=== PATIENT | male | born 1980 | race Caucasian/White ===

== ENCOUNTER 2017-12-12 10:07 | Inpatient (IN) | payer OTHER ==
[~2017-12-12] VITALS: Ht 175.3 cm; Wt 67.0 kg
[2017-12-12 11:30] VITALS: BP 139/84; PULSE 80; TEMP 36.8; O2SAT 96
[2017-12-12] MEDS ORDERED: ONDANSETRON INJ 2 MG/ML 2 ML VIAL IV PRN (12:30)
[2017-12-12] MEDS ORDERED: MAGNESIUM HYDROXIDE SUSP 30 ML UDC PO PRN (12:30)
[2017-12-12] MEDS ORDERED: ACETAMINOPHEN 325 MG TAB PO PRN (12:30)
[2017-12-12] MEDS ORDERED: ALUMINUM/MAGNESIUM/SIMETH (MAALOX MAX) 30 ML UDC PO PRN (12:30)
[2017-12-12 13:22] VITALS: BP 139/84; PULSE 80; TEMP 36.8; Ht 175.3 cm; Wt 67.0 kg
[2017-12-12] MEDS ORDERED: INFLUENZA VIRUS QUAD VACCINE 0.5 ML SYR IM. ONE (14:45)
[2017-12-12] MEDS ORDERED: PNEUMOCOCCAL POLYSACCHARIDES 25 MCG/0.5 ML VIAL/SYR IM. ONE (14:45)
[2017-12-12] MEDS ORDERED: INFLUENZA ADMINISTRATION CHARGE ONE (14:45)
[2017-12-12] MEDS ORDERED: PNEUMOCOCCAL ADMINISTRATION CHARGE ONE (14:45)
[2017-12-12] MEDS ORDERED: PATIENT'S ALLERGY INFO NEEDS ENTERED SCH (15:00)
[2017-12-12 15:31] VITALS: BP 119/66; PULSE 82; TEMP 37.9; O2SAT 98
[2017-12-12] MEDS ORDERED: KETOROLAC TROMETHAMINE 30 MG/ML VIAL ONE (15:35)
[2017-12-12] MEDS ORDERED: KETOROLAC TROMETHAMINE 30 MG/ML VIAL IV ONE (16:15)
[2017-12-12] MEDS: MoRPHine SULFATE 4 MG/ML 1 ML CARP\\VIAL IV PRN ×2 (16:42→20:20)
[2017-12-12] MEDS: NAFCILLIN SOD IV 2 GM in DEXTROSE 5% ADD-VANTAGE 100ML 100 ML IV SCH ×3 (16:42→23:59)
--- NOTE | 2017-12-12 18:58 | History and Physical ---
History & Physical Date of Service Dec 12, 2017. History & Physical admit #[id number]
--- NOTE | 2017-12-12 19:15 | Medical Student: [facility] ---
Med Student History & Physical Date & Time of Service: Dec 12, 2017 at 18:14 Chief Complaint: Foot Infection Primary Care Physician: No Doctor, Assigned History of Present Illness Source: patient, hospital records (patient was transfered to [facility] from [facility]) Mr. Rushing is a 36-year-old male who presents with cellulitis of the left foot via direct admit from [facility]. He was taken to the ED there by a friend late Monday night (12/11) after the skin over the central abscessed area on the left dorsum broke, and the area drained a purulent material. He states that at that time, the pain was so severe that he could not put weight on the foot, which is what prompted him to seek emergent care. This all began about 10 days ago, when the patient noticed a "boil" about the size of a pencil eraser on the dorsum of the left foot. He thought it was an infected hair follicle and attempted to break it open. Several days later, the area became erythematous, warm to touch, and increasingly painful, so he went to an outpatient clinic in [place], where he was given a prescription for an oral antibiotic. He did not get the prescription filled. The pain continued to worsen, and a raised, fluctuant area developed in the center of the left dorsum, surrounded by erythema that reached from the base of his toes to his ankle. Records from [place] were sent with him to [facility] and were reviewed. Vitals taken on arrival to the [place] ED were stable with no increase in temperature. He was given one dose of ceftriaxone and one dose of vancomycin (250 mg) in the ED at [place] before being sent to [facility]. CT scan of the left foot showed no fracture or dislocation, no abscess, and likely inflammation of the soft tissue consistent with cellulitis. A UA done there revealed no infection, and a CBC showed no abnormalities; WBC was 7.9. ESR was slightly elevated and will need followed. On admission to [facility], patient denies fever, chills, any trauma or puncture wound to the left foot, or pain radiating into his toes or proximal to his ankle. He rates his pain as 10/10 and says that he can barely put any weight on the left foot. The pain is localized and has not spread to his toes or more proximal than his ankle. 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 Past Medical/Surgical History 1. Cellulitis of left foot, dorsum, with possible abscess 2. Chronic hepatitis C, untreated Social History Smoking Status: Current Every Day Smoker (1/2 pack per day; about 12 pack-years ) Drug Use: other (recently went through suboxone controlled-detox program) Marital Status: Housing status: lives with significant other Occupational Status: employed Allergies Coded Allergies: No Known Allergies (Unverified , 12/12/17) Review of Systems Constitutional: No fever, No chills, No sweats Eyes: No worsening of vision ENT: No hearing loss, No nasal symptoms Respiratory: No cough, No wheezing, No shortness of breath Cardiovascular: No chest pain, No orthopnea Abdomen: No pain, No nausea, No vomiting Musculoskeletal: + swelling, + problem reported (pain and erythema over dorsum of left foot; pain with weightbearing on left foot) Genitourinary - Male: No hematuria, No dysuria Neurologic: No weakness, No numbness/tingling Endocrine: No fatigue Hematologic / Lymphatic: No abnormal bleeding/bruising Integumentary: + new/changing skin lesions (raised, painful lesion on left foot ), + color change (erythema of left foot from base of toes to ankle) Allergic / Immunologic: No environmental allergies Physical Exam Vital Signs (24 Hours) Date Time Temp Pulse Resp B/P (MAP) Pulse Ox O2 Delivery O2 Flow Rate FiO2 12/12/17 15:31 37.9 82 18 119/66 (83) 98 Room Air 12/12/17 15:30 Room Air 12/12/17 13:22 36.8 80 18 139/84 Room Air 12/12/17 11:30 36.8 80 18 139/84 (102) 96 Room Air General Appearance: WD/WN, + mild distress Head: normocephalic, atraumatic Eyes: normal inspection, PERRL ENT: normal ENT inspection, hearing grossly normal Neck: supple, no adenopathy Respiratory/Chest: chest non-tender, lungs clear, normal breath sounds Cardiovascular: regular rate, rhythm, no edema, no gallop, normal peripheral pulses Abdomen/GI: normal bowel sounds, non tender, soft Back: normal inspection, no CVA tenderness Extremities/Musculoskelatal: normal range of motion (Full ROM in left toes and left ankle; no pain with plantar flexion or dorsiflexion of left ankle or toes) , + pertinent finding (well-demarcated erythema of the left foot from base of toes to ankle; raised 3cm x 3 cm fluctuant lesion on dorsum of left foot that is painful to touch) Neurologic/Psych: no motor/sensory deficits, alert, normal mood/affect, oriented x 3 Skin: + pertinent finding (See comments in [facility] exam) Lymphatic: no adenopathy Diagnostics Laboratory Results Microbiology Results 12/12/17 Gram Stain, Ordered Pending 12/12/17 Wound Culture, Ordered Pending Impression Assessment and Plan Assessment: This is a 36-year-old male who presented with left foot erythema, swelling, and tenderness via direct admit from [facility]. DDx includes Gram+ cellulitis , abscess, Gram- cellulitis, osteomyelitis, trauma, IV drug use with foot injection. Plan: Primary diagnosis: cellulitis of left foot with likely abscess -Obtain wound culture -Start on empiric nafcillin, 2g IV q4, based on most likely pathogen (S. aureus) ; will switch to vancomycin if cultures show MRSA -IM/IV Toradol for pain control; IV morphine for breakthrough pain -Obtain orthopedic consult as wound will likely need I&D -Patient has stable vitals and pain is localized; therefore we will not obtain blood cultures at this time. Will consider if patient worsens on antibiotics. Advanced Directives Existing Living Will: No Existing Power of Inside Sales Person: No Resuscitation Status FULL RESUSCITATION
--- NOTE | 2017-12-12 19:19 | HISTORY & PHYSICAL EXAMINATION ---
DATE OF ADMISSION: 12/12/2017 ADMISSION HISTORY AND PHYSICAL CHIEF COMPLAINT: Foot pain. HISTORY OF PRESENT ILLNESS: The patient is a pleasant 36-year-old male who notes that about a week ago, he had what appeared to be a bit of a pimple on his foot, he popped it was not really bothering him and then a couple days ago it really blew up and appeared to be abscess like, it drained, apparently exudate or at least sero-exudative fluid and since then, he has had ongoing foot pain and erythema. He has had no fevers, chills or sweats. The foot pain is basically localized to the dorsum of his foot. He denies any trauma to the area. He is in a significant amount of pain. REVIEW OF SYSTEMS: Otherwise, negative except for as above. PAST MEDICAL HISTORY: Includes prior IV drug abuse. He notes he has been clean for a while actually just recently weaned off Suboxone and hepatitis C. PAST SURGICAL HISTORY: Includes a thumb surgery. SOCIAL HISTORY: He is a half a pack a day smoker for about 20 years. Former IV drug user, clean for quite a while per him and is employed. FAMILY HISTORY: None of significance. ALLERGIES: No known drug allergies. MEDICATIONS: None chronically at this time; he was just weaned off of Suboxone, he notes about 4 days ago. PHYSICAL EXAMINATION: VITAL SIGNS: Temperature 36.8, pulse 80, respiratory rate 18, blood pressure 139/84, 96% on room air. GENERAL: He is awake, alert, oriented x3, pleasant but does appear to be in a good deal of discomfort with his foot. HEENT: Normocephalic, atraumatic. Mucous membranes are moist. CARDIOVASCULAR: Regular, without rubs, murmurs, or gallops. LUNGS: Clear to auscultation bilaterally. No rales, rhonchi, or wheezes with good effort. ABDOMEN: Soft, nondistended, nontender, no masses or organomegaly. EXTREMITIES: Without cyanosis, clubbing or edema. No calf tenderness. His left foot on the dorsum shows area of erythema that encompasses basically all the dorsum of his foot distal to the ankle but proximal to his phalanxes, in the middle of that is an area of fluctuance. It is exquisitely tender. There is no exudate noted coming out. Certainly, I am not able to put enough pressure to see if exudate is expressible. There is no crepitus. MUSCULOSKELETAL: Shows no ankle or toe edema or effusions and no other gross abnormalities. NEUROLOGIC: Shows cranial nerves II through XII to be grossly intact. Gross motor and sensory intact. His left foot is distally neurovascularly intact. MENTAL STATE: Shows good recent and remote recall. Normal mood and affect. Good judgment and insight. LABS AND DIAGNOSTICS: Done at [facility] showed normal CBC and basic metabolic panel, slightly elevated LFTs. CT of the foot that reportedly shows no abscess or bony destruction. Full report is yet to be able to physically review, but on secondhand information, it sounded as though was consistent entirely soft tissue findings. ASSESSMENT AND PLAN: 1. Foot cellulitis and possible abscess, although the CT did not necessarily show clinically appears this is the case, certainly there is a large fluctuant area in the middle of his foot. He is relatively low risk for methicillin-resistant staphylococcus aureus other than community-acquired methicillin-resistant staphylococcus aureus and given that he is not septic and does not have a rapidly progressive infection, will start IV antibiotics with nafcillin to allow for easier transition to oral antibiotics and certainly if it seems to be failing or if any other signs point to methicillin-resistant staphylococcus aureus can adjust coverage accordingly. Would check a surface swab, although this likely will not give offending pathogens if it does not show anything totally inappropriate such as methicillin-resistant staphylococcus aureus or pseudomonas, then we can adjust treatment accordingly and will consult orthopedics to give consideration to opening the area and hopefully draining. Will also need to more formally gather the data that was sent from [facility]. Will utilize pain control with Tylenol, Toradol and morphine, I discussed with him frankly as far as his concern with morphine with his prior history of addiction, he feels that he will be okay. 2. Hepatitis C, chronic. Will encourage him to seek treatment now that better treatment options are available. 3. Deep venous thrombosis prophylaxis. Ambulation. If it turns out that he is fairly nonambulatory because the pain, then we can reconsider pharmacologic deep venous thrombosis prophylaxis. [facility]
[2017-12-12 23:17] VITALS: BP 144/75; PULSE 66; TEMP 39.2; O2SAT 98
[2017-12-12] MEDS: KETOROLAC TROMETHAMINE 30 MG/ML VIAL IV PRN (23:54)
[2017-12-13 01:30] VITALS: TEMP 37.5
[2017-12-13] MEDS: MoRPHine SULFATE 4 MG/ML 1 ML CARP\\VIAL IV PRN ×3 (03:18→17:00)
[2017-12-13] MEDS: NAFCILLIN SOD IV 2 GM in DEXTROSE 5% ADD-VANTAGE 100ML 100 ML IV SCH ×5 (04:07→20:00)
[2017-12-13 06:13] LABS: HEMATOCRIT 37.8 % (42-52); HEMOGLOBIN 13.6 g/dL (14.0-18.0); MEAN CELL VOLUME 86.7 fL (80-100); MEAN CORPUSCULAR HEMOGLOBIN 31.2 pg (25-34); MEAN PLATELET VOLUME 9.8 fL (7.4-10.4); PLATELET COUNT 117 K/uL (130-400); RED CELL DISTRIBUTION WIDTH CV 13.9 % (11.5-14.5); RED CELL DISTRIBUTION WIDTH SD 43.8 fL (36.4-46.3); WHITE BLOOD COUNT 3.51 K/uL (4.8-10.8)
[2017-12-13 06:46] VITALS: BP 106/60; PULSE 59; TEMP 36.7; O2SAT 97
[2017-12-13 07:36] LABS: BASO % 0.3 %; BASO ABS # 0.01 K/uL (0-0.2); EOS % 0.9 %; EOS ABS # 0.03 K/uL (0-0.5); IG# 0.01 K/uL (0.00-0.02); LYMPH % 50.1 %; LYMPH ABS # 1.76 K/uL (1.2-3.4); MONO % 12.8 %; MONO ABS # 0.45 K/uL (0.11-0.59); NEUT % 35.6 %; NEUT ABS # 1.25 K/uL (1.4-6.5)
--- NOTE | 2017-12-13 12:02 | Medical Student: [facility] ---
Med Student Progress Note Date of Service Dec 13, 2017. Subjective Pt evaluation today including: conversation w/ patient Pain: 03/15 with pain medication, 08/15 betweek doses Voiding: no voiding problems Patient is a 36-year-old male who presented to the [facility] ED with left foot pain due to cellulitis. He says that the pain has improved with morphine and that the swelling has gone down, but he is still very uncomfortable. He recently went through controlled detox with suboxone (last dose was four days ago) and seems to be restless and somewhat agitated. According the nurse notes, he had one high temperature overnight at 39.2C but has not had a fever since. WBC is stable. Denies chills, headache, shortness of breath, chest pain, nausea , abdominal pain, numbness/tingling in extremities. Complained of hunger because of NPO status due to possible I&D. Review of Systems Constitutional: + fever (one overnight), No chills, No sweats Eyes: No worsening of vision, No eye pain ENT: No hearing loss, No nasal symptoms Respiratory: No cough, No wheezing, No shortness of breath Cardiac: No chest pain, No orthopnea Abdomen: No pain, No nausea, No vomiting Musculoskeletal: + see HPI Male : No dysuria Neurologic: No weakness, No numbness/tingling Heme: No abnormal bleeding/bruising Skin: + problem reported (cellulitis on dorsum of left foot; peat shredder tender, warm , and erythematous) Objective Vital Signs Date Time Temp Pulse Resp B/P (MAP) Pulse Ox O2 Delivery O2 Flow Rate FiO2 12/13/17 08:00 Room Air 12/13/17 06:46 36.7 59 16 106/60 (75) 97 Room Air 12/13/17 01:30 37.5 12/13/17 00:01 Room Air 12/12/17 23:17 39.2 66 18 144/75 (98) 98 Room Air 12/12/17 15:31 37.9 82 18 119/66 (83) 98 Room Air 12/12/17 15:30 Room Air 12/12/17 13:22 36.8 80 18 139/84 Room Air Physical Exam General Appearance: WD/WN, + mild distress Eyes: bilateral eyes normal inspection, bilateral eyes PERRL ENT: normal ENT inspection, hearing grossly normal Neck: supple, no adenopathy Respiratory/Chest: chest non-tender, lungs clear, normal breath sounds Cardiovascular: regular rate, rhythm, no edema, no murmur Abdomen: normal bowel sounds, non tender, soft Extremities: normal range of motion, no calf tenderness, + pertinent finding ( 2 x 2 cm raised lesion over the dorsum of his left foot consistent with cellulitis; improvement in erythema and swelling with receding borders) Neurologic/Psychiatric: alert, normal mood/affect, oriented x 3 Skin: + pertinent finding (See above) Lymphatic: no adenopathy Laboratory Results Last 24 Hours Test 12/13/17 05:52 White Blood Count 3.51 K/uL Red Blood Count 4.36 M/uL Hemoglobin 13.6 g/dL Hematocrit 37.8 % Mean Corpuscular Volume 86.7 fL Mean Corpuscular Hemoglobin 31.2 pg Mean Corpuscular Hemoglobin Concent 36.0 g/dl Platelet Count 117 K/uL Mean Platelet Volume 9.8 fL Neutrophils (%) (Auto) 35.6 % Lymphocytes (%) (Auto) 50.1 % Monocytes (%) (Auto) 12.8 % Eosinophils (%) (Auto) 0.9 % Basophils (%) (Auto) 0.3 % Neutrophils # (Auto) 1.25 K/uL Lymphocytes # (Auto) 1.76 K/uL Monocytes # (Auto) 0.45 K/uL Eosinophils # (Auto) 0.03 K/uL Basophils # (Auto) 0.01 K/uL RDW Standard Deviation 43.8 fL RDW Coefficient of Variation 13.9 % Immature Granulocyte % (Auto) 0.3 % Immature Granulocyte # (Auto) 0.01 K/uL Assessment and Plan Assessment and Plan: Assessment: This is a 36-year-old male who presented with left foot erythema, swelling, and tenderness via direct admit from [facility]. DDx includes Gram+ cellulitis , abscess, Gram- cellulitis, osteomyelitis, trauma, IV drug use with foot injection. Plan: Primary diagnosis: cellulitis of left foot with possible abscess -Wound culture refused by patient due to pain -Started on empiric nafcillin, 2g IV q4, based on most likely pathogen (S. aureus); will switch to vancomycin to cover MRSA if patient does not improve -IM/IV Toradol for pain control; IV morphine for breakthrough pain -Seen by ortho this morning - appreciate recs. Will not do I&D at this time as wound and cellulitis is improving. -Patient has stable vitals and pain is localized; therefore we will not obtain blood cultures at this time. Will consider if patient worsens on antibiotics.
--- NOTE | 2017-12-13 12:08 | CONSULTATION REPORT ---
DATE OF CONSULTATION: 12/13/2017 HISTORY OF PRESENT ILLNESS: The patient is a 36-year-old white male admitted as a transfer from [place]. He initially on Monday night had presented to [facility] and was placed on oral antibiotics for a small pimple-like abscessed swelling on the dorsum of his left foot. He took antibiotics until Monday, which worsened, at which time, he presented to [place] [facility] and was admitted to [place], had a CAT scan and x-rays performed there. He subsequently was transferred to [place]. He does have a medical history of hepatitis C and IV drug use and is currently coming off Suboxone treatment. The exam of his foot today he relates the swelling and cellulitis to be reduced significantly in the last 24 hours. He has an area approximately 2 x 2 cm over the dorsum of his left foot that is consistent with a draining wound, no area of fluctuance or ability to express any type of purulent material was noted. Cellulitis is resolving and he relates this swelling as dramatically less than what had been even yesterday. At this point, I would recommend continued IV antibiotics. I do not any need for a surgical debridement currently, although we will continue to follow over the next 24 hours and observe. ASSESSMENT: Cellulitis with a draining wound, dorsum of the left foot. PLAN: Continued IV antibiotics and observation and we will follow with you. DOMENIC
[2017-12-13] MEDS ORDERED: ULT50X PO ×2 (14:30→20:17)
[2017-12-13] MEDS ORDERED: DCL/500 PO ×2 (14:30→20:20)
[2017-12-13] MEDS ORDERED: NAPR-1169 PO (14:30)
--- NOTE | 2017-12-13 14:51 | Discharge Instructions ---
Discharge Instructions Date of Service Dec 13, 2017. Admission Reason for Admission: Foot Infection Discharge Discharge Diagnosis / Problem: foot infection Discharge Goals Goal(s): Diagnostic testing, Therapeutic intervention Activity Recommendations Activity Limitations: resume your previous activity (take it easy as far as walking. off work until at least next week (work note written for off work through 12/21, but also pending further follow up with your (soon to be new) family doc) . Instructions / Follow-Up Instructions / Follow-Up Left foot cellulitis -This is the term for the infection of the skin on your left foot. We started you on an IV antibiotic called nafcillin in the hospital, and the great thing about that drug is that there is an oral pill form of it called dicloxacillin that works just as well. This is what we are sending you a prescription for. -Take one pill of dicloxacillin four times per day for 14 days. If you forget a pill, take two pill instead of one at the next scheduled dose. -Pain control - we have written you prescriptions for Naproxen and Tramadol. The Naproxen is a strong NSAID and should be used as your main source of pain control. You can take one every 12 hours as needed. For breakthrough pain, you can use the Tramadol, one tablet every 6 hours as needed. -We are working to set you up with a follow up appointment with the [facility] residents for Monday or Monday. Their office is closed today because of the weather, but our nurse navigator will call you tomorrow with an appointment. If you have not heard from anyone in our office by tomorrow afternoon, call [phone] (Kierra, our transport corps officer, should be who answers. She'll be able to check into things and either keep you headed in the right direction or get back to you herself) Hepatitis C -As we discussed, this is not a problem that needs to be taken care of immediately. But since you have had this disease for about ten years, it should be treated in the near future in order to prevent complications like liver cancer and cirrhosis. -Since we are setting you up with family medicine for primary care, this is a perfect opportunity for you to discuss your Hep C treatment options with a provider in-depth. The new treatment regimen is very effective, has very few side effects, and is only for a total of three months. Your new primary care physician will help set this up for you. It was a pleasure being a part of you care team here at [facility]. We hope you feel better soon! All the best, Kirstie and Dr. Trammell Current Hospital Diet Patient's current hospital diet: Regular Diet Discharge Diet Recommended Diet: Regular Diet Pending Studies Studies pending at discharge: no Medical Emergencies . Who to Call and When: Medical Emergencies: If at any time you feel your situation is an emergency, please call 911 immediately. . Non-Emergent Contact Non-Emergency issues call your: Primary Care Provider (we're working to set you up with [facility] here in [place] - their office number is [phone]) . . "Provider Documentation" section prepared by Dano Trammell. . VTE Core Measure Inpt VTE Proph given/why not?: Treatment not indicated
[2017-12-13 15:43] VITALS: BP 106/60; PULSE 59; TEMP 36.7; O2SAT 97
[2017-12-13 15:52] VITALS: BP 136/84; PULSE 87; TEMP 37.5; O2SAT 95
[2017-12-13 16:00] VITALS: O2SAT 95
--- NOTE | 2017-12-13 17:49 | Discharge Summary ---
Discharge Summary Date of Service Dec 13, 2017. Discharge Summary Admission Date: Dec 12, 2017 at 12:35 Discharge Date: Dec 13, 2017 Discharge Disposition: Home Principal Diagnosis: foot cellulitis Procedures: CT at [facility] noted to not have drainable abscess Last Resulted CBC 12/13/17 05:52 Red Blood Count 4.36, Mean Corpuscular Volume 86.7, Mean Corpuscular Hemoglobin 31.2, Mean Corpuscular Hemoglobin Concent 36.0, Mean Platelet Volume 9.8, Neutrophils (%) (Auto) 35.6, Lymphocytes (%) (Auto) 50.1, Monocytes (%) (Auto) 12.8, Eosinophils (%) (Auto) 0.9, Basophils (%) (Auto) 0.3, Neutrophils # (Auto ) 1.25, Lymphocytes # (Auto) 1.76, Monocytes # (Auto) 0.45, Eosinophils # (Auto ) 0.03, Basophils # (Auto) 0.01 Consultations: orthopedics Medication Reconciliation New Medications: Dicloxacillin Sodium (Dynapen) 500 Mg Cap 1 CAP PO QID, #56 CAP Naproxen (Naprosyn) 500 Mg Tab 500 MG PO BID PRN for Pain, #15 TAB Tramadol HCl (Tramadol HCl) 50 Mg Tab 1 TAB PO QID PRN for Pain, #10 use naproxen first line, use tramadol for breakthrough pain caution drowsiness Discharge Exam Physical Exam: General Appearance: no apparent distress Eyes: EOMI ENT: hearing grossly normal Neck: trachea midline Respiratory/Chest: no respiratory distress, no accessory muscle use Extremities: + pertinent finding (L foot area of erythema on dorsum of foot much improved, far less red, area of thickness in the middle of dorsum still very tender but not apearing fluctuant, thin serous fluid no exudate) Neurologic/Psychiatric: 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-XII nml as tested, alert, normal mood/affect Skin: normal color, warm/dry Hospital Course admitted through [facility] ED w foot cellulitis, concern on abscess -transferred here for ability for surgical intervention - however, fortunately no such intervention was necessary -never septic, and responded quite nicely to nafcillin - safe for home on dicloxacillin and close outpt f/u -does not have PCP, discussed, and will set up w PCP for f/u for later this week or early next -off work until at least PCP evaluation -naproxen / tramadol prn pain (PDMP reviewed no issues identified) -safe/stable for discharge to home mild pancytopenia -?related to hep C vs due to acute situation -repeat CBC as outpt next week hep C -mild transaminitis -discussed treatment - especially since regimens so much better/easier to tolerate in modern era of treatment DVT proph -ambulation Total Time Spent: Greater than 30 minutes This includes examination of the patient, discharge planning, medication reconciliation, and communication with other providers. Discharge Instructions Please refer to the electronic Patient Visit Report (Discharge Instructions) for additional information. Follow-Up PCP within a week
[2017-12-13] MEDS ORDERED: NPR500 PO (20:20)
[2017-12-13] MEDS: KETOROLAC TROMETHAMINE 30 MG/ML VIAL IV PRN (21:07)
== END 2017-12-13 23:25 | disposition home or self-care (01) | DRG 603 ==
LOC: UNDOADMIN 12:32 → C.MS4W 12:32
PROVIDERS: ADMIT Family Medicine; ATTEND Family Medicine
DX: L03.116 Cellulitis of left lower limb (principal); D61.818 Other pancytopenia; B18.2 Chronic viral hepatitis C; F17.200 Nicotine dependence, unspecified, uncomplicated